=== PATIENT | female | born 1950 | race Two or more races ===

== ENCOUNTER 2019-03-31 22:43 | Emergency (ER) | payer OTHER ==
[~2019-03-31] VITALS: Ht 167.6 cm; Wt 63.5 kg
[~2019-03-31 22:43] MED LIST: ASPIR 8181 MG; LIPITOR20 MG
== END 2019-04-01 14:22 | disposition home or self-care (01) ==
LOC: ER 22:43
DX: E87.1 Hypo-osmolality and hyponatremia (principal); D72.0 Genetic anomalies of leukocytes; R10.13 Epigastric pain

== ENCOUNTER → 2019-04-03 | Emergency (ER) | payer OTHER ==
[~2019-04-03] VITALS: Ht 162.6 cm; Wt 63.5 kg
== END | disposition home or self-care (01) ==
LOC: ER 16:15
DX: K29.70 Gastritis, unspecified, without bleeding (principal)